=== PATIENT | female | born 1975 | race Two or more races ===

== ENCOUNTER 2020-08-12 13:08 | Emergency (ER) | payer OTHER ==
[~2020-08-12] VITALS: Ht 162.6 cm; Wt 110.4 kg
[2020-08-12 13:08] VITALS: BP 173/83
--- NOTE | 2020-08-12 13:56 | PHYS DOC ---
Adult General Chief Complaint Chief Complaint: Neck Pain HPI HPI Patient is a 45-year-old female reports waking up Thursday morning with pain in her upper neck. Patient denies any injury to her neck, patient denies any recent fever or illnesses. Patient denies anyone else living in her home having any recent fever or illnesses. Patient states she took Naprosyn and Tylenol Thursday morning without relief. Patient states that she woke up Thursday morning with worse pain and took a muscle relaxer without relief. Patient states that she woke up this morning with the worsening pain that she rates a 7/10 on a 1-10 pain scale. Patient states she has taken no medications for pain today. Patient states that she fears she might have strep throat as she had a similar presentation with neck discomfort when she had strep throat. Patient denies any sore throat, cough, nasal or chest congestion, denies chest pain or shortness of breath. Patient denies any ear pain, denies rashes of her skin, denies nausea vomiting or diarrhea Review of Systems Review of Systems 14 body systems of review of systems have been reviewed. See HPI for pertinent positives and negative responses, otherwise all other systems are negative, nonpertinent or noncontributory. Allergies Allergies Allergies Coded Allergies Type Severity Reaction Last Updated Verified No Known Drug Allergies 08/12/20 No Physical Exam Physical Exam Constitutional: Well developed, well nourished, no acute distress, non-toxic appearance. 45-year-old female in no apparent distress. HENT: Normocephalic, atraumatic, bilateral external ears normal, oropharynx moist, no oral exudates, nose normal. Oropharynx moist, pink, no infectious process appreciated, no laryngeal edema appreciated no tonsillar swelling, no uvular swelling or edema appreciated. There is no postnasal drip. No lymphadenopathy of the head or neck appreciated, no trismus, no drooling appreciated. Eyes: PERRLA, EOMI, conjunctiva normal, no discharge. Neck: Normal range of motion, no tenderness, supple, no stridor. No meningismus signs, no nuchal rigidity, tenderness to C to C3 area to palpation, there is no step-offs appreciated, no bruising or ecchymosis of the neck appreciated, there is no crepitus appreciated. Cardiovascular:Heart rate regular rhythm, no murmur Lungs & Thorax: Bilateral breath sounds clear to auscultation no adventitious lung sounds appreciated. Abdomen: Bowel sounds normal, soft, no tenderness, no masses, no pulsatile masses. Skin: Warm, dry, no erythema, no rash. Back: No tenderness, no CVA tenderness. Extremities: No tenderness, no cyanosis, no clubbing, ROM intact, no edema. No loss of sensation to extremities, +2/4 pulses, distal cap refill less than 2 seconds, no swelling or edema to the extremities. Neurologic: Alert and oriented X 3, normal motor function, normal sensory function, no focal deficits noted. Psychologic: Affect normal, judgement normal, mood normal. EKG EKG [] Radiology/Procedures Radiology/Procedures PATIENT: YEN MENDOZA ACCOUNT: [id number] : 1975 LOCATION: ER AGE: 45 SEX: F EXAM STATUS: REG ER ORD. PHYSICIAN: PRADEEP YAO APRN REASON: pain in neck with swallowing PROCEDURE: NECK SOFT TISSUE EXAM: Neck soft tissues, 3 views. HISTORY: Pain with swallowing. COMPARISON: None. FINDINGS: 3 views of the neck soft tissues are obtained. There is mild reversal cervical lordosis. There is no significant listhesis. There is degenerative endplate remodeling and anterior spurring at C4-C5 and C5-C6. The airway is widely patent. No foreign body is seen. There is no prevertebral soft tissue swelling. IMPRESSION: 1. 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 2. No acute finding. Electronically signed by: Ana M Pedro MD (08/12/2020 2:06 PM) [facility] DICTATED AND SIGNED BY: ANA M PEDRO MD DATE: 08/12/20 1408 CC: PRADEEP YAO APRN; DINAH WALDEN [employer]NAGER-BC ~MTH0 0 Heart Score C/O Chest Pain: No Risk Factors: Risk Factors: DM, Current or recent (<one month) smoker, HTN, HLP, family history of CAD, obesity. Risk Scores: Risk Factors: DM, Current or recent (<one month) smoker, HTN, HLP, family history of CAD, obesity. Course & Med Decision Making Course & Med Decision Making Pertinent Labs and Imaging studies reviewed. (See chart for details) 45-year-old female, vital signs reviewed, presents to the emergency department concerning neck pain that started Thursday in which she fears she might have strep throat. Physical examination unremarkable, will order rapid strep a, soft tissue neck to rule out deep tissue infectious process. Offered patient pain medication for pain of 7/10, patient refused reporting that she is too sensitive to pain medications and would rather not take anything for her pain. X-ray imaging unremarkable, patient's rapid strep today was negative. Discussed findings with patient, discussed patient following up with primary care at [facility] for ongoing pain management and consideration for MRI investigation. Patient gave verbal understanding of discharge home instructions, follow-up with PCP soon, return to ER precautions and concerns, pain management options at home, patient was discharged home without incident. Dragon Disclaimer Dragon Disclaimer This electronic medical record was generated, in whole or in part, using a voice recognition dictation system. Departure Departure: Impression: Primary Impression: Neck pain Disposition: HOME / SELF CARE / HOMELESS Condition: GOOD Referrals: DINAH WALDEN (PCP) Additional Instructions: You were seen today in the emergency department for neck pain, your x-ray imaging are unremarkable for any infectious process, we will order rapid Streptococcus A test that was negative. You declined offered pain medications reporting that you are very sensitive to taking pain medications. We have discussed you following up with your primary care provider at the [facility] for ongoing pain management and further investigation of your neck pain and discomfort. An x-ray was performed today, as we discussed the radiologist reported "there is degenerative endplate remodeling and anterior spurring at C4-C5 and C5-C6. The airway is widely patent. No foreign body is seen. There is no prevertebral soft tissue swelling." This is consistent with mild degenerative change involving the mid and lower cervical spine. The radiologist did CC your primary care provider with this report. Please see them soon for ongoing management. Please return to the emergency department for worsening symptoms or other concerns. You may use [id number] NSAIDs such as ibuprofen for pain control, you may try ice packs or heating pad for pain c ontrol. EMERGENCY DEPARTMENT GENERAL DISCHARGE INSTRUCTIONS Thank you for coming to [facility] (ED) today and trusting us with you care. We trust that you had a positivie experience in our Emergency Department. If you wish to speak to the department management, you may call the director at [phone]. YOUR FOLLOW UP INSTRUCTIONS ARE FOLLOWS: 1. Do you have a private Doctor? If you do not have a private doctor, please ask for a resource list of physicians or clinics that may be able to assist you with follow up care. 2. The Emergency Physician has interpreted your x-rays. The X-Ray specialist w ill also review them. If there is a change in the findings, you will be notified in 48 hours when at all possible. 3. A lab test or culture has been done, your results will be reviewed and you will be notified if you need a change in treatment. ADDITIONAL INSTRUCTIONS AND INFORMATION: 1. Your care today has been supervised by a physician who is specially trained in emergency care. Many problems require more than one evaluation for a complete diagnosis and treatment. We recommend that you schedule your follow up appointment as recommended to ensure complete treatment of you illness or injury. If you are unable to obtain follow up care and continue to have a problem, or if your condition worsens, we recommend that you return to the ED. 2. We are not able to safely determine your condition over the phone nor are we able to give sound medical advice over the phone. For these safety reasons, if you call for medical advice we will ask you to come to the ED for further evaluation. 3. If you have any questions regarding these discharge instructions please call the ED at [phone]. SAFETY INFORMATION: In the interest of safety, wellness, and injury prevention; we encourage you to wear your sealbelt, if you smoke; quite smoking, and we encourage family to use a protective helmet for bicycling and other sporting events that present an increased risk for head injury. IF YOUR SYMPTOMS WORSEN OR NEW SYMPTOMS DEVELOP, OR YOU HAVE CONCERNS ABOUT YOUR CONDITION; OR IF YOUR CONDITION WORSENS WHILE YOU ARE WAITING FOR YOUR FOLLOW UP APPOINTMENT; EITHER CONTACT YOUR PRIMARY CARE DOCTOR, THE PHYSICIAN WHOSE NAME AND NUMBER YOU WERE GIVEN, OR RETURN TO THE ED IMMEDIATELY. PRADEEP YAO APRN August 12, 2020 13:56
--- NOTE | 2020-08-12 14:08 | RAD ---
EXAM: Neck soft tissues, 3 views. HISTORY: Pain with swallowing. COMPARISON: None. FINDINGS: 3 views of the neck soft tissues are obtained. There is mild reversal cervical lordosis. Th ere is no significant listhesis. There is degenerative endplate remodeling and anterior spurring at C 4-C5 and C5-C6. The airway is widely patent. No foreign body is seen. There is no prevertebral soft t issue swelling. IMPRESSION: 1. 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 2. No acute finding. Electronically signed by: Ana M Nevarez MD (08/12/2020 2:06 PM) [facility]
== END 2020-08-12 14:58 | disposition home or self-care (01) ==
LOC: ER 13:08
DX: M54.2 Cervicalgia (principal); R50.9 Fever, unspecified
CPT/HCPCS: 70360; 87070; 87880; 99284